=== PATIENT | female | born 1995 | race Caucasian/White ===

== ENCOUNTER 2019-04-28 07:02 | Emergency (ER) | payer SELFPAY ==
[2019-04-28 08:24] LABS: Absolute Lymphocytes (CBC) 2.1 K/uL (0.7-4.9); Basophils % 0.7 % (0-1.3); Eosinophils % 6.8 % (0-4.4); Lymphocytes % 32.4 % (15.3-44.8); MPV 9.4 fL (7.6-11.3); Monocytes % 9.9 % (3.3-12.3); RBC Red Blood Cell Count 4.45 M/uL (3.86-4.86)
[2019-04-28 08:27] LABS: ALT/SGPT 16 U/L (12-78); AST/SGOT 17 U/L (15-37); Albumin 4.3 g/dL (3.4-5.0); Alkaline Phosphatase 90 U/L (45-117); BUN Blood Urea Nitrogen 10 mg/dL (7-18); Bicarbonate 30 mmol/L (21-32); Bilirubin Direct 0.1 mg/dL (0-0.2); Bilirubin Total 0.3 mg/dL (0.2-1.0); Glucose Level 94 mg/dL (74-106); Lipase 313 U/L (73-393); Potassium 4.1 mmol/L (3.5-5.1); Protein, Total 7.9 g/dL (6.4-8.2); Sodium Level 140 mmol/L (136-145)
[2019-04-28 08:34] LABS: Urine Blood TRACE (NEG); Urine Glucose NEGATIVE (NEG); Urine Protein NEGATIVE (NEG); Urine Specific Gravity 1.025 (1.005-1.030)
[2019-04-28] MEDS ORDERED: ONDANSETRON 4 MG/2 ML VIAL ONE (08:53)
--- NOTE | 2019-04-28 10:46 | RAD REPORT ---
EXAM DESCRIPTION: CT - Abdomen Pelvis W Contrast - 04/28/2019 10:31 am CLINICAL HISTORY: Recurring right lower quadrant pain COMPARISON: None TECHNIQUE: Biphasic, helical CT imaging of the abdomen and pelvis was performed following 100 ml non -ionic IV contrast. Oral contrast was given. All CT scans are performed using dose optimization technique as appropriate and may include automated exposure control or mA/KV adjustment according to patient size. FINDINGS: No suspicious findings in the lung bases. The liver, spleen, and pancreas show no suspicious findings. Gallbladder and biliary tree are also wi thout suspicious finding. Symmetric renal function is seen with no hydronephrosis or suspicious renal mass. No pyelonephritis o r acute parenchymal process. No bladder abnormalities. No adrenal abnormalities. No gastric dilatation or gastric wall thickening. No dilated large or small bowel. Oral CT contrast h as reached the distal rectum. No appendicitis findings. No uterus or left ovary abnormality identified. Right ovary contains a 2.[address] fin dings for cyst rupture or hemorrhage. No free air or pneumatosis. Physiologic quantity of free fluid seen in the cul de sac. No abnormal free fluid collections seen. No hernia, mass or bulky lymphadeno taylor. No suspicious bony findings. IMPRESSION: No appendicitis or surgically emergent finding. No pyelonephritis or acute finding. Approximately 2.9 centimeter right ovarian cyst. No cyst rupture or hemorrhage findings.
--- NOTE | 2019-04-28 11:13 | EDPHYS ---
Physician Documentation [facility] Name: Nella Quezada Age: 24 yrs Sex: Female : 1995 Arrival Date: 04/28/2019 Time: 07:06 Bed 13 Private MD: ED Physician Sanju Hillman HPI: 04/28 09:01 This 24 yrs old Female presents to ER via Ambulatory with complaints of pm1 Abdominal Pain, Vomiting/Diarrhea. 09:01 The patient presents with abdominal pain in the right upper quadrant. Onset: The pm1 symptoms/episode began/occurred 1 year(s) ago. The symptoms radiate to right back. Associated signs and symptoms: Pertinent positives: diarrhea, nausea, Pertinent negatives: chest pain, constipation, dysuria, fever, shortness of breath, vomiting. The symptoms are described as crampy. Modifying factors: The symptoms are alleviated by nothing, the symptoms are aggravated by nothing. Severity of pain: in the emergency department the pain has improved. The patient has not recently seen a physician. 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 - Social history:: Smoking status: Patient/guardian denies using tobacco. - Ebola Screening: : Patient denies exposure to infectious person Patient denies travel to an Ebola-affected area in the 21 days before illness onset. ROS: 09:01 Constitutional: Negative for fever, chills, and weight loss, Eyes: Negative for injury, pm1 pain, redness, and discharge, ENT: Negative for injury, pain, and discharge, Neck: Negative for injury, pain, and swelling, Cardiovascular: Negative for chest pain, palpitations, and edema, Respiratory: Negative for shortness of breath, cough, wheezing, and pleuritic chest pain. 09:01 Back: Negative for injury and pain, : Negative for injury, bleeding, discharge, and swelling, MS/Extremity: Negative for injury and deformity, Skin: Negative for injury, rash, and discoloration, Neuro: Negative for headache, weakness, numbness, tingling, and seizure. 09:01 Abdomen/GI: Positive for abdominal pain, nausea, diarrhea, Negative for vomiting, constipation. Exam: 09:01 Constitutional: This is a well developed, well nourished patient who is awake, alert, pm1 and in no acute distress. Head/Face: Normocephalic, atraumatic. Eyes: Pupils equal round and reactive to light, extra-ocular motions intact. Lids and lashes normal. Conjunctiva and sclera are non-icteric and not injected. Cornea within normal limits. Periorbital areas with no swelling, redness, or edema. ENT: Nares patent. No nasal discharge, no septal abnormalities noted. Tympanic membranes are normal and external auditory canals are clear. Oropharynx with no redness, swelling, or masses, exudates, or evidence of obstruction, uvula midline. Mucous membranes moist. Neck: Trachea midline, no thyromegaly or masses palpated, and no cervical lymphadenopathy. Supple, full range of motion without nuchal rigidity, or vertebral point tenderness. No Meningismus. Chest/axilla: Normal chest wall appearance and motion. Nontender with no deformity. No lesions are appreciated. Cardiovascular: Regular rate and rhythm with a normal S1 and S2. No gallops, murmurs, or rubs. Normal PMI, no JVD. No pulse deficits. Respiratory: Lungs have equal breath sounds bilaterally, clear to auscultation and percussion. No rales, rhonchi or wheezes noted. No increased work of breathing, no retractions or nasal flaring. 09: Back: No spinal tenderness. No costovertebral tenderness. Full range of motion. Skin: Warm, dry with normal turgor. Normal color with no rashes, no lesions, and no evidence of cellulitis. MS/ Extremity: Pulses equal, no cyanosis. Neurovascular intact. Full, normal range of motion. 09:01 Abdomen/GI: Inspection: abdomen appears normal, Bowel sounds: normal, Palpation: soft, mild abdominal tenderness, in the right upper quadrant, mass, is not appreciated, rebound tenderness, is not appreciated. 09:01 Neuro: Orientation: is normal, Motor: is normal, moves all fours, Gait: is steady, at a normal pace, without difficulty. Vital Signs: 07:11 Resp 16; Weight 52.16 kg; Height 5 ft. 1 in. (154.94 cm); Pain 6/10; ss 07:14 BP 123 / 73; Pulse 63; Resp 16; Temp 98.5(TE); ss 08:00 BP 112 / 66; Pulse 71; Resp 14; Pulse Ox 100% on R/A; ls4 09:00 BP 114 / 60; Pulse 62; Resp 14; Pulse Ox 99% on R/A; Pain 4/10; ls4 10:07 BP 108 / 65; Pulse 66; Resp 14; Pulse Ox 99% on R/A; Pain 5/10; ls4 07:11 Body Mass Index 21.73 (52.16 kg, 154.94 cm) ss MDM: 07:10 Patient medically screened. pm1 09:03 Data reviewed: vital signs. pm1 11:07 Counseling: I had a detailed discussion with the patient and/or guardian regarding: the pm1 historical points, exam findings, and any diagnostic results supporting the discharge/admit diagnosis, lab results, radiology results, the need for outpatient follow up, to return to the emergency department if symptoms worsen or persist or if there are any questions or concerns that arise at home. 04/28 07:07 Order name: Basic Metabolic Panel; Complete Time: 08:57 pm1 04/28 07:07 Order name: CBC with Diff; Complete Time: 08:57 pm1 04/28 07:07 Order name: Creatinine for Radiology; Complete Time: 08:23 pm04/28 07:07 Order name: Hepatic Function; Complete Time: 08:57 pm1 04/28 07:07 Order name: Lipase; Complete Time: 08:57 pm04/28 07:37 Order name: Urine Dipstick--Ancillary (enter results); Complete Time: 08:57 hb 04/28 07:07 Order name: IV Saline Lock; Complete Time: 07:37 pm04/28 07:07 Order name: Labs collected and sent; Complete Time: 07:37 pm04/28 07:07 Order name: Urine Dipstick-Ancillary (obtain specimen); Complete Time: 07:37 pm04/28 07:07 Order name: Urine Test (obtain specimen); Complete Time: 07:36 pm1 04/28 07:24 Order name: CT Abd/Pelvis - IV Contrast Only; Complete Time: 10:49 pm04/28 07:37 Order name: Urine --Ancillary (enter results); Complete Time: 08:57 hb Administered Medications: 08:30 Drug: Zofran 4 mg Route: IVP; Site: right antecubital; ls4 09:00 Follow up: Response: No adverse reaction; Marked relief of symptoms ls4 Disposition: 14:18 Co-signature as Attending Physician, Sanju Hillman MD I agree with the assessment and kdr plan of care. Disposition: 04/28/19 11:12 Discharged to Home. Impression: Unspecified ovarian cysts. - Condition is Stable. - Discharge Instructions: Ovarian Cyst. - Prescriptions for Tylenol- Codeine #3 300-30 mg Oral Tablet - take 2 tablets by ORAL route every 6 hours As needed; 20 tablet. - Medication Reconciliation Form, Thank You Letter, Antibiotic Education, Prescription Opioid Use, Work release form form. - Follow up: Emergency Department; When: As needed; Reason: Worsening of condition. Follow up: Private Physician; When: 2 - 3 days; Reason: Recheck today's complaints, Continuance of care, Re-evaluation by your physician. - Problem is new. - Symptoms have improved. Signatures: Dispatcher [employer] EDMS Sanju Hillman MD MD [facility] Sravani Benitez RN RN ss Prashant Iglesias NP SENIOR POWER PLANT OPERATOR pm1 Samantha Pulido RN RN ls4 Corrections: (The following items were deleted from the chart) 11:52 11:12 04/28/2019 11:12 Discharged to Home. Impression: Unspecified ovarian cysts. ls4 Condition is Stable. Forms are Medication Reconciliation Form, Thank You Letter, Antibiotic Education, Prescription Opioid Use. Follow up: Emergency Department; When: As needed; Reason: Worsening of condition. Follow up: Private Physician; When: 2 - 3 days; Reason: Recheck today's complaints, Continuance of care, Re-evaluation by your physician. Problem is new. Symptoms have improved. pm1
--- NOTE | 2019-04-28 11:13 | ER ---
Nurse's Notes [facility] Name: Nella Quezada Age: 24 yrs Sex: Female : 1995 Arrival Date: 04/28/2019 Time: 07:06 Bed 13 Private MD: Diagnosis: Unspecified ovarian cysts Presentation: 04/28 07:09 Presenting complaint: Patient states: intermittent RLQ pain that radiates towards back ss x 1 year. Pt reports the pain was "really bad this morning" and when she has the pain, diarrhea and mild nausea follow. Transition of care: patient was not received from another setting of care. Onset of symptoms is unknown. Risk Assessment: Do you want to hurt yourself or someone else? Patient reports no desire to harm self or others. Initial Sepsis Screen: Does the patient meet any 2 criteria? No. Patient's initial sepsis screen is negative. Does the patient have a suspected source of infection? No. Patient's initial sepsis screen is negative. Care prior to arrival: None. 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 - Social history:: Smoking status: Patient/guardian denies using tobacco. - Ebola Screening: : Patient denies exposure to infectious person Patient denies travel to an Ebola-affected area in the 21 days before illness onset. Screenin:37 Abuse screen: Denies threats or abuse. Denies injuries from another. Nutritional hb screening: No deficits noted. Tuberculosis screening: No symptoms or risk factors identified. Fall Risk None identified. Assessment: 07:37 General: Appears in no apparent distress. Behavior is calm, cooperative. Pain: Pain hb currently is 0 out of 10 on a pain scale. at worst was 5 out of 10 on a pain scale. Neuro: Level of Consciousness is awake, alert, obeys commands. Cardiovascular: Capillary refill < 3 seconds Patient's skin is warm and dry. Respiratory: Airway is patent Respiratory effort is even, unlabored, Respiratory pattern is regular, symmetrical. GI: Abdomen is non-distended, Bowel sounds present X 4 quads. Abd is soft Abdomen is tender to palpation RUQ. : No signs and/or symptoms were reported regarding the genitourinary system. EENT: No signs and/or symptoms were reported regarding the EENT system. Derm: Skin is intact, is healthy with good turgor. Musculoskeletal: No signs and/or symptoms reported regarding the musculoskeletal system. 08:30 Reassessment: Patient appears in no apparent distress at this time. Patient and/or ls4 family updated on plan of care and expected duration. Pain level reassessed. Patient is alert, oriented x 3, equal unlabored respirations, skin warm/dry/pink. 09:30 Reassessment: Patient appears in no apparent distress at this time. Patient and/or ls4 family updated on plan of care and expected duration. Pain level reassessed. Patient is alert, oriented x 3, equal unlabored respirations, skin warm/dry/pink. 10:30 Reassessment: Patient appears in no apparent distress at this time. Patient and/or ls4 family updated on plan of care and expected duration. Pain level reassessed. Patient is alert, oriented x 3, equal unlabored respirations, skin warm/dry/pink. 11:40 Reassessment: Patient appears in no apparent distress at this time. Patient and/or ls4 family updated on plan of care and expected duration. Pain level reassessed. Patient is alert, oriented x 3, equal unlabored respirations, skin warm/dry/pink. Vital Signs: 07:11 Resp 16; Weight 52.16 kg; Height 5 ft. 1 in. (154.94 cm); Pain 6/10; ss 07:14 BP 123 / 73; Pulse 63; Resp 16; Temp 98.5(TE); 08:00 BP 112 / 66; Pulse 71; Resp 14; Pulse Ox 100% on R/A; ls4 09:00 BP 114 / 60; Pulse 62; Resp 14; Pulse Ox 99% on R/A; Pain 4/10; ls4 10:07 BP 108 / 65; Pulse 66; Resp 14; Pulse Ox 99% on R/A; Pain 5/10; ls4 07:11 Body Mass Index 21.73 (52.16 kg, 154.94 cm) ED Course: 07:06 Patient arrived in ED. as 07:06 Prashant Iglesias NP is PHCP. pm1 07:10 Triage completed. ss 07:11 Arm band placed on right wrist. ss 07:30 Patient has correct armband on for positive identification. Placed in gown. Bed in low hb position. Call light in reach. 07:32 Inserted saline lock: 20 gauge in right antecubital area, using aseptic technique. hb Blood collected. 07:33 Sanju Hillman MD is Attending Physician. pm1 07:36 Samantha Pulido, RN is Primary Nurse. ls4 10:09 No provider procedures requiring assistance completed. ls4 10:36 CT Abd/Pelvis - IV Contrast Only In Process Unspecified. EDMS Administered Medications: 08:30 Drug: Zofran 4 mg Route: IVP; Site: right antecubital; ls4 09:00 Follow up: Response: No adverse reaction; Marked relief of symptoms ls4 Outcome: 11:12 Discharge ordered by MD. pm1 11:40 Discharged to home ambulatory. ls4 11:40 Condition: stable 11:40 Discharge instructions given to patient, Instructed on discharge instructions, follow up and referral plans. medication usage, Demonstrated understanding of instructions, follow-up care, medications. 11:52 Patient left the ED. ls4 Signatures: Dispatcher [employer] EDMS Nery Pimentel Shelby, LUIS ALFREDO LOBATO Prashant Iglesias, HAYLEY WOODWORKING MACHINE SETTER pm1 Mellissa Melara RN RN Samantha Pulido RN RN ls4
== END 2019-04-28 11:52 | disposition home or self-care (01) ==
LOC: ER 07:02
DX: N83.209 Unspecified ovarian cyst, unspecified side (principal)
CPT/HCPCS: 36415; 74177; 80048; 80076; 81003; 81025; 83690; 85025; 96374; 99284; J2405; Q9967

== ENCOUNTER 2021-07-24 21:25 | Emergency (ER) | payer OTHER, SELFPAY ==
--- OUTSIDE RECORDS SUMMARY | 2021-07-24 21:30 | XMS REPORT | Continuity of Care Document ---
:1995 Author Organization [facility] t Address [address] [place] [address] Care Team Providers Name Role Phone Sumanth BABCOCK, N Primary Care Physician Akinsipe WHCNP, C Attending Clinician Doctor Unassigned, Name Attending Clinician Unavailable David LOBATO, R Attending Clinician Unavailable Only, Db Test Attending Clinician Unavailable Ruiz BABCOCK Attending Clinician Payers Payer Name Policy Type Policy Number Effective Date Expiration Date S ource Advance Directives Directive Decision Effective Termination Comments Source Date Date Healthcare Agents on N/A Univ ersity FileNameRelationshipHealthcare [facility] Agent Medical RelationshipCommunicationJavontae Branch BrinsonOtherHealth Care [phone] (Mobile) Problems Condition Condition Condition Status Onset Resolution Last Treating Co mments Source Name Details Category Date Date Treatment Clinician Date Short Short Disease Active Univers interval interval 9-10 ity of between between 00:00: [place] pregnancie pregnancie 00 Me dical s s Branch affecting affecting , , antepartum antepartum BMI BMI Disease Active Univers 36.0-36.9, 36.0-36.9, 5-19 it y of adult adult 00:00: [place] 00 Medical Branch 39 weeks 39 weeks Disease Active Unive rs gestation gestation 4-05 ity of of of 00:00: [place] 00 [facility] naty Branch Low weight Low weight Disease Active U nivers gain gain 3-09 ity of during during 00:00: [place] 00 [facility] in third in third Branch trimester trimester Uterine Uterine Disease Active Univers size-date size-date - it[place] of discrepanc discrepanc [place] in third 00 Me dical trimester trimester Bran ch Supervisio Supervisio Disease Active U nivers n of n of 209 ity of high-risk high-risk 00:[place] [facility] Branch Abnormal Abnormal Disease Active Overview: Un katerine maternal maternal 08-07 Formattin ity of glucose glucose 00:00: g of this [place] tolerance, tolerance, 00 note Me dical antepartum antepartum might be Branch different from the original. Passed 3hr gtt Multiparit Multiparit Disease Active U nivers y y 08-04 ity of 00:00: [place] Medical Branch History of History of Disease Active Overview : Univers 08-04 Formattin ity of section section 00:00: g of this [place] note Medical might be Branch different from the original. X3 see scanned records 1st at 39 [id number] at 37 weeks, due to oligohydr amnios 3rd with [facility] History of History of Disease Active U nivers oligohydra oligohydra 08-04 it y of mnios mnios 00:00: [place] [facility] Screening Screening Disease Active 2015-11 Uni vers examinatio examinatio 12-19 it y of n for STD n for STD 00:[place] ([place]ually (sexually [facility] transmitte transmitte Br anch d disease) d disease) History of History of Disease Active 2015-11 U nivers depression depression 12-19 it y of 00:00: [place] [facility] Overweight Overweight Disease Active 2015-11 U nivers (BMI (BMI 2- ity of 25.0-29.9) 25.0-29.9) [place] Tobacco Tobacco Disease Active 2015-11 Overview: Univ ers use in use in 12-19 Formattin ity of 00:00: [place] of this [place] note Medical might be Branch different from the original. 5cig/day Allergies, Adverse Reactions, Alerts This patient has no known allergies or adverse reactions. Social History Social Habit Start Date Stop Date Quantity Comments Source ASSERTION 2021-06-27 University of 00:00:00 [facility] History of tobacco 2011-12-04 Cigarette Smoker University of use 00:00:00 [facility] Exposure to Not sure University of SARS-CoV-2 (event) [facility] Cigarettes smoked 2021-07-20 2021-07-20 Univers ity of current (pack per 00:00:00 00:00:00 [facility] ) - Reported Branch Tobacco use and 2021-07-20 2021-07-20 Never used Universit y of exposure 00:00:00 00:00:00 [facility] Alcohol intake 2021-07-20 2021-07-20 Current University of 00:00:00 00:00:00 non-drinker of [facility] alcohol [place] (finding) Tobacco Comment 2020-08-04 2020-08-04 trying to quit-5 Uni versity of 00:00:00 00:00:00 ciggs a day [facility] Sex Ass[birth year] At [birth year] Universit y of 00:00:00 00:00:00 [facility] Smoking Status Start Date Stop Date Source Current some day smoker 2021-07-20 00:00:00 [facility] ersity of [facility] Medications Ordered Filled Start Stop Current Ordering Indication Dosage Frequency Signature Comments Components Source Medication Medication Date Date Medication? Clinician (SIG) Name Name Yes [id number] 1{tbl} Take 1 U nivers multivitami 9-10 tablet by ity of n ( 00:00: mouth [place] VITAMIN) 00 daily. Medical tablet Branch Yes [id number] 1{tbl} Take 1 U nivers multivitami 9-10 tablet by ity of n ( 00:00: mouth [place] VITAMIN) 00 daily. Medical tablet Branch Yes [id number] 1{tbl} Take 1 Univers vitamin 4-07 tablet by ity of w/FA tablet 00:00: mouth [place] 00 daily. Medical Branch docusate Yes [id number] 240mg Take 1 U nivers calcium 240 4-07 capsule by it y of mg capsule 00:00: mouth once [place] 00 daily as Medical needed for Branch Constipati on. ferrous Yes [id number] 325mg Take 1 Un katerine sulfate 325 4-07 tablet by ity of mg (65 mg 00:00: mouth 2 [place] iron) 00 (two) Medical tablet times Branch daily. ibuprofen Yes [id number] 600mg Take 1 Univers 600 mg 4-07 tablet by ity of tablet 00:00: mouth [place] 00 every 6 Medical (six) Branch hours as needed (Pain). Take with food or milk. 2020-0 Yes [id number] 1{tbl} Take 1 Univers vitamin 4-07 tablet by ity of w/FA tablet 00:00: mouth [place] 00 daily. Medical Branch docusate Yes [id number] 240mg Take 1 U nivers calcium 240 4-07 capsule by it y of mg capsule 00:00: mouth once [place] 00 daily as Medical needed for Branch Constipati on. ferrous Yes [id number] 325mg Take 1 Un katerine sulfate 325 4-07 tablet by ity of mg (65 mg 00:00: mouth 2 [place] iron) 00 (two) Medical tablet times Branch daily. ibuprofen Yes [id number] 600mg Take 1 Univers 600 mg 4-07 tablet by ity of tablet 00:00: mouth [place] 00 every 6 Medical (six) Branch hours as needed (Pain). Take with food or milk. Yes [id number] 1{tbl} Take 1 Univers vitamin 4-07 tablet by ity of w/FA tablet 00:00: mouth [place] 00 daily. Medical Branch docusate Yes [id number] 240mg Take 1 U nivers calcium 240 4-07 capsule by it y of mg capsule 00:00: mouth once [place] 00 daily as Medical needed for Branch Constipati on. ferrous Yes [id number] 325mg Take 1 Un katerine sulfate 325 4-07 tablet by ity of mg (65 mg 00:00: mouth 2 [place] iron) 00 (two) Medical tablet times Branch daily. ibuprofen Yes [id number] 600mg Take 1 Univers 600 mg 4-07 tablet by ity of tablet 00:00: mouth [place] 00 every 6 Medical (six) Branch hours as needed (Pain). Take with food or milk. 2020-0 Yes [id number] 1{tbl} Take 1 Univers vitamin 4-07 tablet by ity of w/FA tablet 00:00: mouth [place] 00 daily. Medical Branch docusate Yes [id number] 240mg Take 1 U nivers calcium 240 4-07 capsule by it y of mg capsule 00:00: mouth once [place] 00 daily as Medical needed for Branch Constipati on. ferrous Yes [id number] 325mg Take 1 Un katerine sulfate 325 4-07 tablet by ity of mg (65 mg 00:00: mouth 2 [place] iron) 00 (two) Medical tablet times Branch daily. ibuprofen Yes [id number] 600mg Take 1 Univers 600 mg 4-07 tablet by ity of tablet 00:00: mouth [place] 00 every 6 Medical (six) Branch hours as needed (Pain). Take with food or milk. acetaminoph 2021- No [id number] 325mg Take 1 Univers en 4-07 04-08 tablet by ity of (TYLENOL) 00:00: 04:59 mouth [place] 325 mg 00 :00 every 6 Medical tablet (six) Branch hours as needed for Alternate with ibuprofen for pain scale 1-3. acetaminoph 2021- No [id number] 325mg Take 1 Univers en 4-07 04-08 tablet by ity of (TYLENOL) 00:00: 04:59 mouth [place] 325 mg 00 :00 every 6 Medical tablet (six) Branch hours as needed for Alternate with ibuprofen for pain scale 1-3. acetaminoph 2021- No [id number] 325mg Take 1 Univers en 4-07 04-08 tablet by ity of (TYLENOL) 00:00: 04:59 mouth [place] 325 mg 00 :00 every 6 Medical tablet (six) Branch hours as needed for Alternate with ibuprofen for pain scale 1-3. acetaminoph 2021- No [id number] 325mg Take 1 Univers en 4-07 04-08 tablet by ity of (TYLENOL) 00:00: 04:59 mouth [place] 325 mg 00 :00 every 6 Medical tablet (six) Branch hours as needed for Alternate with ibuprofen for pain scale 1-3. nicotine 14 Yes [id number] 1{patch Apply 1 Univers mg/24 hr 4-06 } Patch to ity of patch 00:00: area(s) [place] 00 every 24 Medical (twenty-fo Branch ur) hours. nicotine 14 Yes [id number] 1{patch Apply 1 Univers mg/24 hr 4-06 } Patch to ity of patch 00:00: area(s) [place] 00 every 24 Medical (twenty-fo Branch ur) hours. nicotine 14 2020- Yes [id number] 1{patch Apply 1 Univers mg/24 hr 4-06 } Patch to ity of patch 00:00: area(s) [place] 00 every 24 Medical (twenty-fo Branch ur) hours. nicotine 14 Yes [id number] 1{patch Apply 1 Univers mg/24 hr 4-06 } Patch to ity of patch 00:00: area(s) [place] 00 every 24 Medical (twenty-fo Branch ur) hours. Immunizations Ordered Filled Immunization Date Status Comments [facility] e Immunization Name Name TDAP 2020-12-07 Completed University of 00:00:00 [facility] TDAP 2020-12-07 Completed University of 00:00:00 [facility] TDAP 2020-12-07 Completed University of 00:00:00 [facility] TDAP 2020-12-07 Completed University of 00:00:00 [facility] TDAP 2014-11-10 Completed University of 00:00:00 [facility] TDAP 2014-11-10 Completed University of 00:00:00 [facility] TDAP 2014-11-10 Completed University of 00:00:00 [facility] TDAP 2014-11-10 Completed University of 00:00:00 [facility] HPV 2004-05-17 Completed University of 00:00:00 [facility] HPV 2004-05-17 Completed University of 00:00:00 [facility] HPV 2004-05-17 Completed University of 00:00:00 [facility] HPV 2004-05-17 Completed University of 00:00:00 [facility] Branch HPV 2003-11-17 Completed University of 00:00:00 [facility] Branch HPV 2003-11-17 Completed University of 00:00:00 [facility] HPV 2003-11-17 Completed University of 00:00:00 [facility] HPV 2003-11-17 Completed University of 00:00:00 [facility] Vital Signs Vital Name Observation Time Observation Value Comments Source Systolic blood 2021-07-20 19:31:00 123 mm[Hg] Univer sity of pressure [facility] Diastolic blood 2021-07-20 19:31:00 71 mm[Hg] Unive rsity of pressure [facility] Heart rate 2021-07-20 19:31:00 103 /min [facility] Body temperature 2021-07-20 19:31:00 36.94 Lexii [facility] Res[facility] 2021-07-20 19:31:00 16 /min [facility] Body height 2021-07-20 19:31:00 154.9 cm [facility] Body weight 2021-07-20 19:31:00 53.78 kg [facility] BMI 2021-07-20 19:31:00 22.40 kg/m2 [facility] Procedures Procedure Date / Time Performed Performing Clinician Sourc e POCT URINALYSIS W/O 2021-07-20 19:23:00 Michelle Velez Uni versity of [place] SPECIFIC GRAVITY [facility] POCT TEST 2021-07-20 19:22:00 Michelle Velez Uni versgreyson [facility] REPORT OF 2021-07-20 05:01:00 Doctor Unassgary, Taylor Un iversity of [facility] Encounters Start End Encounter Admission Attending Care Care Encounter Source Date/Time Date/Time Type Type Clinicians Facility Department ID 2021-07-20 2021-07-20 Initial TOMMY Velez [id number] Univers 14:08:33 15:11:52 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 [id number] ity of Visit [facility] [id number] Raheem as MATERNAL [id number] Med ical & CHILD [address] [place] [address] 2021-07-20 2021-07-20 Orders Doctor LANGE [id number] Univers 00:00:00 00:00:00 Only UnassignedHATTIE [id number] ity of [place] [facility] [id number] Raheem as [id number] [address] 2021-07-15 2021-07-15 Telephone ANISA Hernandez [id number] Univers 00:00:00 00:00:00 Bonnie KUHN [id number] it y of [facility] [id number] Raheem as [id number] [address] 2021-07-13 2021-07-13 Laboratory Only, Ang Db Test [facility] [id number] Univers 13:49:06 13:59:06 Only Pema Melchor [facility] [id number] ity of [place] [id number] Raheem as Ramirez?Blea [id number] [address] Medical Office Building Results Test Description Test Time Test Comments Results Result Comments Source POCT URINALYSIS W/O SPECIFIC GRAVITY 2021-07-20 19:23:00 Test Item Value Reference Range Interpretation Comme nts POCT PH U (test code = 3254) 7 mg/dl 5-8 POCT U LEUK EST (test code = 3263) Trace Negative - Negative POCT U NIT (test code = 3262) Neg Negative - Negative POCT U PROT (test code = 3259) Trace Negative - Negative POCT U GLU (test code = 3256) Neg Negative - Negative POCT U KETONE (test code = 3258) Small Negative - Negative POCT U BLD (test code = 3257) Large Negative - Negative [id number]:22:00 Test Item Value Reference Range Interpretation Comments POCT PREG (test code = 1605) Positive On board controls acceptable with C Yes Line (test code = 3574) POCT PREG LOT # (test code = 3575) POCT PREG TEST DATE (test code = 3576) [facility]
--- NOTE | 2021-07-25 00:17 | EDPHYS ---
Physician Documentation [facility] Name: Nella Quezada Age: 26 yrs Sex: Female : 1995 Arrival Date: 07/24/2021 Time: 21:36 Bed 4 Private MD: ED Physician Michael Bucio HPI: 07/24 22:36 This 26 yrs old Female presents to ER via Ambulatory with complaints of pm1 Congestion, Productive Cough, Vomiting, 6WKS . 22:36 The patient or guardian reports cough. Onset: The symptoms/episode began/occurred pm1 yesterday. Severity of symptoms: in the emergency department the symptoms are unchanged. Modifying factors: The symptoms are alleviated by nothing, the symptoms are aggravated by nothing. Associated signs and symptoms: Pertinent positives: Nausea and morning sickness. Patient just found out she is approximately 6 weeks , Pertinent negatives: fever. Patient presenting here today with her 5-month-old son who has cough congestion and runny nose. Historical: - Allergies: 21:48 No Known Allergies; wg - Home Meds: 21:48 None [Active]; wg - Immunization history:: Adult Immunizations up to date. - Social history:: Smoking status: Patient denies any tobacco usage or history of. ROS: 22:36 Constitutional: Negative for fever, chills, and weight loss, Eyes: Negative for injury, pm1 pain, redness, and discharge, ENT: Negative for injury, pain, and discharge, Cardiovascular: Negative for chest pain, palpitations, and edema. 22:36 Abdomen/GI: Negative for abdominal pain, nausea, vomiting, diarrhea, and constipation, Back: Negative for injury and pain, : Negative for injury, bleeding, discharge, and swelling, MS/Extremity: Negative for injury and deformity, Skin: Negative for injury, rash, and discoloration, Neuro: Negative for headache, weakness, numbness, tingling, and seizure. 22:36 Respiratory: Positive for cough, Negative for shortness of breath, sputum production. 22:36 All other systems are negative. Exam: 22:36 Constitutional: This is a well developed, well nourished patient who is awake, alert, pm1 and in no acute distress. Head/Face: Normocephalic, atraumatic. 22:36 Back: No spinal tenderness. No costovertebral tenderness. Full range of motion. 22:36 Skin: Warm, dry with normal turgor. Normal color with no rashes, no lesions, and no evidence of cellulitis. MS/ Extremity: Pulses equal, no cyanosis. Neurovascular intact. Full, normal range of motion. 22:36 Eyes: Exam is negative for acute changes, Periorbital structures: appear normal, Pupils: no acute changes, Extraocular movements: no acute changes, Conjunctiva: no acute changes, no injection. 22:36 ENT: Exam is negative for acute changes, Mouth: no acute changes, Lips: normal, moist, Oral mucosa: normal, pink and intact, moist, Posterior pharynx: no acute changes. 22:36 Neck: Exam negative for acute changes, ROM/movement: no acute changes. 22:36 Cardiovascular: Exam negative for acute changes, Rate: normal, Rhythm: regular, Pulses: no pulse deficits are appreciated, Heart sounds: normal. 22:36 Respiratory: Exam negative for acute changes, respiratory distress, shortness of breath, Breath sounds: are clear throughout. 22:36 Abdomen/GI: Exam negative for Inspection: abdomen appears normal, Palpation: abdomen is soft and non-tender, in all quadrants. 22:36 Neuro: Exam negative for acute changes, Orientation: is normal, Mentation: is normal, Motor: is normal, moves all fours. Vital Signs: 21:45 BP 124 / 83; Pulse 98; Resp 18; Temp 98.8; Pulse Ox 100% on R/A; Weight 53.52 kg; wg Height 5 ft. 1 in. (154.94 cm); Pain 0/10; 07/25 00:47 BP 128 / 76; Pulse 74; Resp 18; Temp 98.7; Pulse Ox 98% ; ea 07/24 21:45 Body Mass Index 22.30 (53.52 kg, 154.94 cm) wg MDM: 07/24 22:26 Patient medically screened. pm1 07/25 00:15 Data reviewed: vital signs. Data interpreted: Pulse oximetry: on room air is 100 %. pm1 Interpretation: normal. Counseling: I had a detailed discussion with the patient and/or guardian regarding: the historical points, exam findings, and any diagnostic results supporting the discharge/admit diagnosis, lab results, the need for outpatient follow up, to return to the emergency department if symptoms worsen or persist or if there are any questions or concerns that arise at home. 07/24 21:51 Order name: COVID-19 : Document "Date of Symptom Onset" if Symptomatic. wg 07/24 22:35 Order name: Flu pm1 07/24 22:35 Order name: Strep pm1 07/24 22:36 Order name: Influenza Screen (A ; Complete Time: 00:14 EDMS 07/24 22:36 Order name: Group A Streptococcus Rapid Sc; Complete Time: 00:14 EDMS 07/24 23:16 Order name: SARS-COV-2 RT PCR; Complete Time: 23:40 EDMS 07/25 00:12 Order name: Throat Culture EDMS Administered Medications: No medications were administered Disposition: 02:54 Co-signature as Attending Physician, Michael Bucio MD. [email or web address] Disposition Summary: 07/25/21 00:16 Discharge Ordered Location: Home pm1 Problem: new pm1 Symptoms: have improved pm1 Condition: Stable pm1 Diagnosis - Acute upper respiratory infection, unspecified pm1 Followup: pm1 - With: Emergency Department - When: As needed - Reason: Worsening of condition Followup: pm1 - With: Private Physician - When: 2 - 3 days - Reason: Recheck today's complaints, Continuance of care, Re-evaluation by your physician Discharge Instructions: - Discharge Summary Sheet pm1 - Upper Respiratory Infection, Adult pm1 Forms: - Medication Reconciliation Form pm1 - Thank You Letter pm1 - Antibiotic Education pm1 - Prescription Opioid Use pm1 Signatures: Dispatcher [employer] EDVA Prashant Iglesias, HAYLEY END MAKER pm1 Michael Bucio MD MD 7 Scott Harding RN Corrections: (The following items were deleted from the chart) 07/24 22:10 21:51 CORONAVIRUS ordered. EDVA EDVA
--- NOTE | 2021-07-25 00:17 | ER ---
Nurse's Notes [facility] Name: Nella Quezada Age: 26 yrs Sex: Female : 1995 Arrival Date: 07/24/2021 Time: 21:36 Bed 4 Private MD: Diagnosis: Acute upper respiratory infection, unspecified Presentation: 07/24 21:45 Chief complaint: Patient states: States she has been feeling congested since yesterday. wg States she is 6 weeks . No fevers at home. No other symptoms than congestion. Coronavirus screen: Vaccine status: Patient reports being unvaccinated. Client presents with at least one sign or symptom that may indicate coronavirus-19. Standard/surgical mask placed on the client. Ebola Screen: Patient negative for fever greater than or equal to 101.5 degrees Fahrenheit, and additional compatible Ebola Virus Disease symptoms Patient denies exposure to infectious person. Patient denies travel to an Ebola-affected area in the 21 days before illness onset. No symptoms or risks identified at this time. Resp Distress? No respiratory distress is noted at this time. Initial Sepsis Screen: Does the patient meet any 2 criteria? No. Patient's initial sepsis screen is negative. Does the patient have a suspected source of infection? No. Patient's initial sepsis screen is negative. Risk Assessment: Do you want to hurt yourself or someone else? Patient reports no desire to harm self or others. Onset of symptoms was July 23, 2021. Care prior to arrival: None. 21:45 Method Of Arrival: Ambulatory 21:45 Method Of Arrival: Ambulatory 21:45 Acuity: JERRY 4 Triage Assessment: 21:48 General: Appears in no apparent distress. comfortable, well groomed, Behavior is calm, wg cooperative, appropriate for age. Pain: Denies pain. EENT: Reports nasal congestion since yesterday. Neuro: No deficits noted. Cardiovascular: No deficits noted. Respiratory: No deficits noted. Breath sounds are clear bilaterally. GI: No deficits noted. : No deficits noted. Derm: No deficits noted. Musculoskeletal: No deficits noted. Historical: - Allergies: 21:48 No Known Allergies; wg - Home Meds: 21:48 None [Active]; wg - Immunization history:: Adult Immunizations up to date. - Social history:: Smoking status: Patient denies any tobacco usage or history of. Screenin:09 Abuse screen: Denies threats or abuse. Nutritional screening: No deficits noted. ea Tuberculosis screening: No symptoms or risk factors identified. Fall Risk None identified. Assessment: 22:10 General: Appears in no apparent distress. Behavior is calm, cooperative, appropriate ea for age. Neuro: Level of Consciousness is awake, alert, obeys commands, Oriented to person, place, time. Respiratory: Airway is patent Respiratory effort is even, unlabored, Respiratory pattern is regular, symmetrical. Derm: Skin is pink, warm \T\ dry. Vital Signs: 21:45 BP 124 / 83; Pulse 98; Resp 18; Temp 98.8; Pulse Ox 100% on R/A; Weight 53.52 kg; wg Height 5 ft. 1 in. (154.94 cm); Pain 0/10; 07/25 00:47 BP 128 / 76; Pulse 74; Resp 18; Temp 98.7; Pulse Ox 98% ; ea 07/24 21:45 Body Mass Index 22.30 (53.52 kg, 154.94 cm) ED Course: 07/24 21:36 Patient arrived in ED. cf2 21:48 Triage completed. wg 21:49 Arm band placed on right wrist. wg 22:05 Octavia Hughes, LUIS ALFREDO is Primary Nurse. ea 22:08 Prashant Iglesias NP is PHCP. pm1 22:08 Michael Bucio MD is Attending Physician. pm1 22:10 Patient has correct armband on for positive identification. Bed in low position. Call ea light in reach. Side rails up X2. 07/25 00:45 No provider procedures requiring assistance completed. Patient did not have IV access ea during this emergency room visit. Administered Medications: No medications were administered Outcome: 00:16 Discharge ordered by . pm1 01:06 Patient left the ED. jb4 Signatures: Prashant Iglesias NP SUPERVISOR KENNEL pm1 Chas Rodríguez RN RN jb4 Octavia Hughes RN RN ea Frazier, [place] cf2 Scott Harding RN
[2021-07-25 01:34] VITALS: BP 128/76; TEMP 98.7; O2SAT 98
== END 2021-07-25 01:06 | disposition home or self-care (01) ==
LOC: ER 21:25
DX: O99.511 Diseases of the respiratory system complicating pregnancy, first trimester (principal); Z3A.01 Less than 8 weeks gestation of pregnancy; Z20.822 Contact with and (suspected) exposure to COVID-19
CPT/HCPCS: 87070; 87081; 87804; 99281; U0003